=== PATIENT | male | born 1960 | race Two or more races ===

== ENCOUNTER → 2019-06-14 | Outpatient (CLI) | payer OTHER ==
[~2019-06-14] MED LIST: APOTEX PO; APPLE CIDER VINEGAR PO; ATOR20TA37 PO; B CO1TAB14 PO; CEPH-368 PO; CYCL-259 PO; HYDROCHLORIDE PO; IBUP-1223 PO; LACT1CAP37 PO; LISI-170 PO; METO-93 PO; MULT-718 PO; OXYC15TA PO; TESTOSTERONE PO; TRAM50TA2 PO
[2019-06-14 09:55] LABS: BASOPHILS # (AUTO) 0.01 x10^3/uL (0-0.1); BASOPHILS % (AUTO) 0 % (0-1); EOSINOPHILS # (AUTO) 0.08 x10^3/uL (0-0.4); EOSINOPHILS % (AUTO) 2 % (1-7); LYMPHOCYTES # (AUTO) 1.34 x10^3/uL (1-3.4); LYMPHOCYTES % (AUTO) 24 % (22-44); MD NO; MEAN CORPUSCULAR HEMOGLOBIN 30.8 pg (27.5-34.5); MEAN CORPUSCULAR VOLUME 90.4 fL (81-97); MEAN PLATELET VOLUME 7.6 fL (7.4-10.4); MONOCYTES # (AUTO) 0.47 x10^3/uL (0.2-0.8); MONOCYTES % (AUTO) 8 % (2-9); NEUTROPHILS # (AUTO) 3.78 x10^3/uL (1.8-6.8); NEUTROPHILS % (AUTO) 67 % (42-75); PLATELET COUNT 205 x10^3/uL (130-400); RED BLOOD COUNT 4.99 x10^6/uL (4.38-5.82); RED CELL DISTRIBUTION WIDTH 13.4 % (9.4-14.8)
[2019-06-14 10:07] LABS: ALANINE AMINOTRANSFERASE 110 U/L (12-78); ALBUMIN 4.4 g/dL (3.4-5.0); ANION GAP 4 mmol/L (5-15); CALCIUM 8.7 mg/dL (8.5-10.1); CHLORIDE 108 mmol/L (98-107); CREATININE 0.79 mg/dL (0.7-1.3)
[2019-06-14 10:08] LABS: ALKALINE PHOSPHATASE 84 U/L (45-117); BILIRUBIN,TOTAL 0.7 mg/dL (0.2-1.0); TOTAL PROTEIN 7.5 g/dL (6.4-8.2)
[2019-06-14 10:15] LABS: HEMOGLOBIN A1C 6.1 % (4.2-6.3)
[2019-06-14 10:16] LABS: INTERNATIONAL NORMALIZED RATIO 0.98 (0.93-1.1); PROTHROMBIN TIME 10.3 Seconds (9.6-11.5)
[2019-06-14 11:10] LABS: HCT (SEDRATE) 45.1 % (39.2-51.8)
== END | disposition home or self-care (01) ==
LOC: STAR 08:55
PROVIDERS: ATTEND Orthopaedic Surgery Orthopaedic Surgery of the Spine
DX: Z01.818 Encounter for other preprocedural examination (principal); M43.16 Spondylolisthesis, lumbar region; A52.17 General paresis; M48.061 Spinal stenosis, lumbar region without neurogenic claudication; Z87.891 Personal history of nicotine dependence
CPT/HCPCS: 36415; 71046; 80053; 83036; 85025; 85610; 85651; 85730; 93005

== ENCOUNTER 2019-07-05 08:47 | Inpatient (IN) | payer OTHER ==
[~2019-07-05] VITALS: Ht 180.3 cm; Wt 108.5 kg
[2019-07-05] MEDS ORDERED: MIDAZOLAM 1 MG/ML, 2ML ONE (10:21)
[2019-07-05] MEDS ORDERED: FENTANYL PF 250 MCG/5ML ONE ×2 (10:21→12:13)
[2019-07-05] MEDS ORDERED: PROPOFOL 10 MG/ML, 20ML ONE (10:25)
[2019-07-05] MEDS ORDERED: CEFAZOLIN 1,000 MG ONE ×3 (10:25→12:25)
[2019-07-05] MEDS ORDERED: ROCURONIUM 10MG/ML,5ML ONE (10:25)
[2019-07-05] MEDS ORDERED: ONDANSETRON 2MG/ML, 2ML ONE (10:25)
[2019-07-05] MEDS ORDERED: DEXAMETHASONE 4 MG/ML, 1ML ONE (10:25)
[2019-07-05] MEDS ORDERED: NEOSTIGMINE 1 MG/ML, 10ML ONE (10:25)
[2019-07-05] MEDS ORDERED: GLYCOPYRROLATE 0.2MG/1ML, 5ML ONE (10:25)
[2019-07-05] MEDS ORDERED: PROPOFOL 50 ML ONE ×5 (10:25→16:10)
[2019-07-05] MEDS ORDERED: DIPHENHYDRAMINE 50 MG CAPSULE PO PRN (11:00)
[2019-07-05] MEDS ORDERED: PROMETHAZINE 25 MG/ML, 1ML IM PRN (11:00)
[2019-07-05] MEDS ORDERED: LORazepam 1MG TABLET PO PRN (11:00)
[2019-07-05] MEDS: CEFAZOLIN PMX 1GM/50ML 50 ML IVPB SCH ×2 (11:00→19:00)
[2019-07-05] MEDS ORDERED: ACETAMINOPHEN 500 MG TABLET PO PRN (11:00)
[2019-07-05] MEDS ORDERED: OXYcodone IR 5MG TABLET PO PRN (11:00)
[2019-07-05] MEDS ORDERED: DIPHENHYDRAMINE 50 MG/ML, 1ML IM PRN (11:00)
[2019-07-05] MEDS ORDERED: KETOROLAC 30 MG/1 ML IVPush ONE (11:00)
[2019-07-05] MEDS ORDERED: SENNA/DOCUSATE TABLET PO PRN (11:00)
[2019-07-05] MEDS ORDERED: morphine SULFATE 10 MG/ML, 1ML IVPush PRN (11:00)
[2019-07-05] MEDS ORDERED: LABETALOL 5MG/ML, 20ML IVPush PRN (11:00)
[2019-07-05] MEDS ORDERED: DEXAMETHASONE 6 MG in SODIUM CHLORIDE 0.9% 50 ML IV PRN (11:00)
[2019-07-05] MEDS ORDERED: KETOROLAC 30 MG/1 ML IM SCH (11:00)
[2019-07-05] MEDS ORDERED: ONDANSETRON 2MG/ML, 2ML IVPush PRN (11:00)
[2019-07-05] MEDS ORDERED: PHARMACY MAY ADJ FOR RENAL FX MC PRN (11:00)
[2019-07-05] MEDS ORDERED: DIPHENHYDRAMINE 50 MG/ML, 1ML IVPush PRN (11:00)
[2019-07-05] MEDS ORDERED: LACTATED RINGERS 1,000 ML IV SCH (11:02)
[2019-07-05] MEDS ORDERED: TRANEXAMIC ACID 100 MG/ML, 10ML ONE ×2 (11:03)
[2019-07-05] MEDS ORDERED: VANCOMYCIN 1,000 MG ONE (11:03)
[2019-07-05] MEDS ORDERED: BUPIVACAINE/PF 0.5% ONE (11:03)
[2019-07-05] MEDS ORDERED: THROMBIN SPRAY 20,000 UNIT SPRAY TP ONE (11:03)
[2019-07-05] MEDS ORDERED: EPINEPHRINE 1 MG/ML, 1ML ONE (11:03)
[2019-07-05] MEDS ORDERED: LISI-170 PO (11:04)
[2019-07-05] MEDS ORDERED: BACITRACIN 50,000 UNIT ONE (11:04)
[2019-07-05] MEDS ORDERED: GABAPENTIN 300 MG CAPSULE ONE (11:27)
[2019-07-05] MEDS ORDERED: ACETAMINOPHEN 500 MG TABLET ONE (11:27)
[2019-07-05] MEDS ORDERED: VANCOMYCIN PMX 1GM/200ML 200 ML IV ONE (11:30)
[2019-07-05] MEDS ORDERED: ACETAMINOPHEN 500 MG TABLET PO ONE (11:30)
[2019-07-05] MEDS ORDERED: GABAPENTIN 300 MG CAPSULE PO ONE (11:30)
[2019-07-05 11:32] VITALS: BP 131/82
[2019-07-05] MEDS ORDERED: PHENYLEPHRINE 10 MG/ML ONE (11:59)
[2019-07-05] MEDS ORDERED: hydrALAzine 20 MG/ML, 1ML IV PRN (12:00)
[2019-07-05] MEDS ORDERED: LABETALOL 5MG/ML, 20ML IV PRN (12:00)
[2019-07-05] MEDS ORDERED: FENTANYL PF 100 MCG/2ML IV PRN (12:00)
[2019-07-05] MEDS ORDERED: OXYcodone 5 MG/5 ML ORAL.SOL UDC PO PRN (12:00)
[2019-07-05] MEDS ORDERED: ONDANSETRON 2MG/ML, 2ML IV PRN (12:00)
[2019-07-05] MEDS ORDERED: HYDROmorphone 2 MG/ML, 1ML IVPush PRN (12:00)
[2019-07-05] MEDS ORDERED: MORPHINE SULFATE 4 MG/ML, 1ML IVPush PRN (12:00)
[2019-07-05] MEDS ORDERED: MEPERIDINE/PF 25MG/ML,1ML IVPush PRN (12:00)
[2019-07-05] MEDS ORDERED: FENTANYL PF 100 MCG/2ML ONE (17:23)
[2019-07-05] MEDS ORDERED: OXYcodone 5 MG/5 ML ORAL.SOL UDC ONE (17:23)
[2019-07-05] MEDS ORDERED: KETOROLAC 30 MG/1 ML ONE (17:43)
[2019-07-05] MEDS ORDERED: METHOCARBAMOL 1,000 MG in DEXTROSE 5% 100 ML IV ONE (18:00)
[2019-07-05] MEDS ORDERED: KETOROLAC 30 MG/1 ML IVPush PRN (18:00)
[2019-07-05] MEDS ORDERED: DEXAMETHASONE 4 MG/ML, 5ML IVPush PRN (19:00)
[2019-07-05] MEDS: OXYcodone IR 5MG TABLET PO PRN (20:43)
[2019-07-05] MEDS: D5%-0.9% NACL+KCL 20MEQ 1,000 ML IV SCH (23:00)
[2019-07-06 00:56] VITALS: BP 119/81
[2019-07-06] MEDS: CEFAZOLIN PMX 1GM/50ML 50 ML IVPB SCH ×2 (01:43→11:20)
[2019-07-06 05:34] LABS: BASOPHILS % (AUTO) 0 % (0-1); EOSINOPHILS # (AUTO) 0.09 x10^3/uL (0-0.4); EOSINOPHILS % (AUTO) 1 % (1-7); LYMPHOCYTES # (AUTO) 0.92 x10^3/uL (1-3.4); LYMPHOCYTES % (AUTO) 10 % (22-44); MD NO; MEAN CORPUSCULAR HEMOGLOBIN 31.2 pg (27.5-34.5); MEAN CORPUSCULAR HGB CONC 33.7 g/dL (33.2-36.2); MEAN CORPUSCULAR VOLUME 92.5 fL (81-97); MEAN PLATELET VOLUME 8.3 fL (7.4-10.4); MONOCYTES # (AUTO) 0.56 x10^3/uL (0.2-0.8); MONOCYTES % (AUTO) 6 % (2-9); NEUTROPHILS # (AUTO) 7.93 x10^3/uL (1.8-6.8); NEUTROPHILS % (AUTO) 84 % (42-75); PLATELET COUNT 143 x10^3/uL (130-400); RED BLOOD COUNT 3.71 x10^6/uL (4.38-5.82); RED CELL DISTRIBUTION WIDTH 13.1 % (9.4-14.8)
[2019-07-06 06:12] VITALS: BP 109/68
[2019-07-06] MEDS: METOPROLOL SUCCINATE 50 MG TAB.ER.24H PO SCH (06:13)
[2019-07-06 06:56] VITALS: BP 127/76
[2019-07-06] MEDS: MULTIVITS,STRESS FORMULA 1 TABLET PO SCH (07:46)
[2019-07-06] MEDS: CYCLOBENZAPRINE 10 MG TABLET PO SCH (07:46)
[2019-07-06] MEDS: LISINOPRIL 20 MG TABLET PO SCH (07:46)
[2019-07-06] MEDS: LACTOBACILLUS CHEW TABLET PO SCH (07:47)
[2019-07-06] MEDS: D5%-0.9% NACL+KCL 20MEQ 1,000 ML IV SCH ×2 (12:11→22:13)
[2019-07-06] MEDS ORDERED: KETOROLAC 30 MG/1 ML IVPush SCH (13:00)
[2019-07-06 13:35] VITALS: BP 92/59
[2019-07-06] MEDS: DEXAMETHASONE 4 MG/ML, 1ML IV SCH ×2 (14:02→20:21)
[2019-07-06] MEDS: KETOROLAC 30 MG/1 ML IV SCH ×2 (14:02→22:13)
[2019-07-06] MEDS: ACETAMINOPHEN 500 MG TABLET PO SCH ×2 (14:03→20:22)
[2019-07-06 19:14] VITALS: BP 103/68
[2019-07-07 00:24] VITALS: BP 95/57
[2019-07-07] MEDS: DEXAMETHASONE 4 MG/ML, 1ML IV SCH ×4 (02:27→20:14)
[2019-07-07] MEDS: ZOLPIDEM 5MG TABLET PO PRN ×2 (02:27→22:37)
[2019-07-07] MEDS: ACETAMINOPHEN 500 MG TABLET PO SCH ×4 (02:27→20:14)
[2019-07-07 05:33] LABS: MEAN CORPUSCULAR HEMOGLOBIN 31.4 pg (27.5-34.5); MEAN CORPUSCULAR HGB CONC 33.7 g/dL (33.2-36.2); MEAN CORPUSCULAR VOLUME 93.4 fL (81-97); MEAN PLATELET VOLUME 8.5 fL (7.4-10.4); PLATELET COUNT 130 x10^3/uL (130-400); RED BLOOD COUNT 3.09 x10^6/uL (4.38-5.82); RED CELL DISTRIBUTION WIDTH 13.1 % (9.4-14.8)
[2019-07-07 06:12] LABS: BASOPHILS # (AUTO) 0.01 x10^3/uL (0-0.1); BASOPHILS % (AUTO) 0 % (0-1); EOSINOPHILS # (AUTO) 0.21 x10^3/uL (0-0.4); EOSINOPHILS % (AUTO) 2 % (1-7); LYMPHOCYTES # (AUTO) 0.64 x10^3/uL (1-3.4); LYMPHOCYTES % (AUTO) 4 % (22-44); MD SCAN; MONOCYTES # (AUTO) 0.75 x10^3/uL (0.2-0.8); MONOCYTES % (AUTO) 5 % (2-9); NEUTROPHILS % (AUTO) 89 % (42-75)
[2019-07-07] MEDS: METOPROLOL SUCCINATE 50 MG TAB.ER.24H PO SCH (06:12)
[2019-07-07] MEDS: KETOROLAC 30 MG/1 ML IV SCH ×3 (06:12→22:32)
[2019-07-07 06:16] VITALS: BP 108/69
[2019-07-07 07:05] VITALS: BP 110/66
[2019-07-07 08:35] VITALS: BP 126/69
[2019-07-07] MEDS: MULTIVITS,STRESS FORMULA 1 TABLET PO SCH (08:36)
[2019-07-07] MEDS: CYCLOBENZAPRINE 10 MG TABLET PO SCH (08:36)
[2019-07-07] MEDS: LISINOPRIL 20 MG TABLET PO SCH (08:36)
[2019-07-07] MEDS: LACTOBACILLUS CHEW TABLET PO SCH (08:36)
[2019-07-07 14:19] VITALS: BP 121/68
[2019-07-07] MEDS: D5%-0.9% NACL+KCL 20MEQ 1,000 ML IV SCH (14:56)
[2019-07-07] MEDS: METHOCARBAMOL 1,000 MG in DEXTROSE 5% 100 ML IV SCH ×2 (14:56→22:39)
[2019-07-07] MEDS ORDERED: METHOCARBAMOL 750 MG TABLET PO SCH (19:00)
[2019-07-07 19:31] VITALS: BP_SYST 121; BP_SYST 148; BP_DIAS 68; BP_DIAS 77
[2019-07-08 00:55] VITALS: BP 145/78
[2019-07-08] MEDS: D5%-0.9% NACL+KCL 20MEQ 1,000 ML IV SCH ×2 (02:27→13:48)
[2019-07-08] MEDS: ACETAMINOPHEN 500 MG TABLET PO SCH ×4 (02:27→20:04)
[2019-07-08] MEDS: DEXAMETHASONE 4 MG/ML, 1ML IV SCH ×4 (02:27→20:04)
[2019-07-08 05:13] LABS: BASOPHILS # (AUTO) 0.01 x10^3/uL (0-0.1); BASOPHILS % (AUTO) 0 % (0-1); EOSINOPHILS # (AUTO) 0.18 x10^3/uL (0-0.4); EOSINOPHILS % (AUTO) 1 % (1-7); LYMPHOCYTES # (AUTO) 0.57 x10^3/uL (1-3.4); LYMPHOCYTES % (AUTO) 5 % (22-44); MD NO; MEAN CORPUSCULAR HEMOGLOBIN 31.3 pg (27.5-34.5); MEAN CORPUSCULAR HGB CONC 33.5 g/dL (33.2-36.2); MEAN CORPUSCULAR VOLUME 93.7 fL (81-97); MEAN PLATELET VOLUME 8.6 fL (7.4-10.4); MONOCYTES # (AUTO) 0.67 x10^3/uL (0.2-0.8); MONOCYTES % (AUTO) 5 % (2-9); NEUTROPHILS # (AUTO) 11.33 x10^3/uL (1.8-6.8); NEUTROPHILS % (AUTO) 89 % (42-75); PLATELET COUNT 136 x10^3/uL (130-400); RED CELL DISTRIBUTION WIDTH 13.4 % (9.4-14.8)
[2019-07-08] MEDS: METOPROLOL SUCCINATE 50 MG TAB.ER.24H PO SCH (05:50)
[2019-07-08] MEDS: KETOROLAC 30 MG/1 ML IV SCH ×2 (05:50→13:48)
[2019-07-08 06:58] VITALS: BP 117/71
[2019-07-08] MEDS: LISINOPRIL 20 MG TABLET PO SCH (08:19)
[2019-07-08] MEDS: MULTIVITS,STRESS FORMULA 1 TABLET PO SCH (08:19)
[2019-07-08] MEDS: METHOCARBAMOL 1,000 MG in DEXTROSE 5% 100 ML IV SCH (08:19)
[2019-07-08] MEDS: LACTOBACILLUS CHEW TABLET PO SCH (08:19)
[2019-07-08 12:48] VITALS: BP 133/81
[2019-07-08] MEDS: MAGNESIUM HYDROXIDE 8%, 30ML UDC PO PRN (13:55)
[2019-07-08] MEDS ORDERED: IBUPROFEN 800 MG TABLET PO PRN (15:30)
[2019-07-08] MEDS: METHOCARBAMOL 750 MG TABLET PO PRN ×2 (16:30→23:01)
[2019-07-08] MEDS: CEFAZOLIN 2,000 MG in SODIUM CHLORIDE 0.9% 50 ML IV SCH ×2 (16:30→23:42)
[2019-07-08] MEDS: OXYcodone IR 5MG TABLET PO PRN ×3 (16:30→23:40)
[2019-07-08 20:30] VITALS: BP 156/99
[2019-07-08] MEDS: ZOLPIDEM 5MG TABLET PO PRN (23:01)
[2019-07-08 23:47] VITALS: BP 129/84
[2019-07-09] MEDS: ACETAMINOPHEN 500 MG TABLET PO SCH ×4 (02:21→21:13)
[2019-07-09] MEDS: DEXAMETHASONE 4 MG/ML, 1ML IV SCH ×4 (02:21→21:13)
[2019-07-09] MEDS: OXYcodone IR 5MG TABLET PO PRN ×3 (04:38→21:13)
[2019-07-09 05:22] LABS: BASOPHILS # (AUTO) 0.01 x10^3/uL (0-0.1); BASOPHILS % (AUTO) 0 % (0-1); EOSINOPHILS # (AUTO) 0.14 x10^3/uL (0-0.4); EOSINOPHILS % (AUTO) 1 % (1-7); LYMPHOCYTES % (AUTO) 6 % (22-44); MD NO; MEAN CORPUSCULAR HEMOGLOBIN 31.3 pg (27.5-34.5); MEAN CORPUSCULAR HGB CONC 33.6 g/dL (33.2-36.2); MEAN PLATELET VOLUME 8.3 fL (7.4-10.4); MONOCYTES # (AUTO) 0.39 x10^3/uL (0.2-0.8); MONOCYTES % (AUTO) 4 % (2-9); NEUTROPHILS # (AUTO) 10.06 x10^3/uL (1.8-6.8); NEUTROPHILS % (AUTO) 89 % (42-75); PLATELET COUNT 180 x10^3/uL (130-400); RED BLOOD COUNT 3.05 x10^6/uL (4.38-5.82); RED CELL DISTRIBUTION WIDTH 13.5 % (9.4-14.8)
[2019-07-09] MEDS: METOPROLOL SUCCINATE 50 MG TAB.ER.24H PO SCH (06:27)
[2019-07-09 07:28] VITALS: BP 152/91
[2019-07-09] MEDS: LISINOPRIL 20 MG TABLET PO SCH (08:49)
[2019-07-09] MEDS: MULTIVITS,STRESS FORMULA 1 TABLET PO SCH (08:49)
[2019-07-09] MEDS: LACTOBACILLUS CHEW TABLET PO SCH (08:49)
[2019-07-09] MEDS: CEFAZOLIN 2,000 MG in SODIUM CHLORIDE 0.9% 50 ML IV SCH ×2 (08:59→16:52)
[2019-07-09] MEDS: MAGNESIUM HYDROXIDE 8%, 30ML UDC PO PRN (11:12)
[2019-07-09 14:00] VITALS: BP 156/83
[2019-07-09 20:41] VITALS: BP 159/96
[2019-07-09] MEDS: ZOLPIDEM 5MG TABLET PO PRN (22:33)
[2019-07-10] MEDS: CEFAZOLIN 2,000 MG in SODIUM CHLORIDE 0.9% 50 ML IV SCH ×2 (00:24→08:30)
[2019-07-10] MEDS: DEXAMETHASONE 4 MG/ML, 1ML IV SCH ×2 (03:25→08:30)
[2019-07-10] MEDS: ACETAMINOPHEN 500 MG TABLET PO SCH ×2 (03:26→08:31)
[2019-07-10] MEDS: OXYcodone IR 5MG TABLET PO PRN ×2 (03:26→06:26)
[2019-07-10 04:07] VITALS: BP 151/80
[2019-07-10 05:25] LABS: BASOPHILS # (AUTO) 0.01 x10^3/uL (0-0.1); BASOPHILS % (AUTO) 0 % (0-1); EOSINOPHILS % (AUTO) 1 % (1-7); LYMPHOCYTES # (AUTO) 0.92 x10^3/uL (1-3.4); LYMPHOCYTES % (AUTO) 10 % (22-44); MD NO; MEAN CORPUSCULAR HEMOGLOBIN 31.2 pg (27.5-34.5); MEAN CORPUSCULAR HGB CONC 33.6 g/dL (33.2-36.2); MEAN CORPUSCULAR VOLUME 92.9 fL (81-97); MEAN PLATELET VOLUME 8.2 fL (7.4-10.4); MONOCYTES % (AUTO) 6 % (2-9); NEUTROPHILS # (AUTO) 7.48 x10^3/uL (1.8-6.8); NEUTROPHILS % (AUTO) 83 % (42-75); PLATELET COUNT 197 x10^3/uL (130-400); RED BLOOD COUNT 3.16 x10^6/uL (4.38-5.82); RED CELL DISTRIBUTION WIDTH 13.4 % (9.4-14.8)
[2019-07-10] MEDS: METOPROLOL SUCCINATE 50 MG TAB.ER.24H PO SCH (06:26)
[2019-07-10 07:53] VITALS: BP 153/81
[2019-07-10] MEDS: LACTOBACILLUS CHEW TABLET PO SCH (08:30)
[2019-07-10] MEDS: MULTIVITS,STRESS FORMULA 1 TABLET PO SCH (08:31)
[2019-07-10] MEDS: LISINOPRIL 20 MG TABLET PO SCH (08:31)
[2019-07-10] MEDS: MAGNESIUM HYDROXIDE 8%, 30ML UDC PO PRN (08:38)
[2019-07-10] MEDS ORDERED: HYDR-3237 PO (13:38)
[2019-07-10] MEDS ORDERED: OXYC5CAP2 PO (13:56)
[2019-07-10] MEDS ORDERED: CEPH-368 PO (13:57)
[2019-07-10] MEDS ORDERED: DIAZ5TAB PO (13:57)
== END 2019-07-10 14:35 | disposition home or self-care (01) | DRG 460 ==
LOC: ORIP 10:13 → 4NE 18:40
PROVIDERS: ADMIT Orthopaedic Surgery Orthopaedic Surgery of the Spine; ATTEND Orthopaedic Surgery Orthopaedic Surgery of the Spine
PROC: 0SG30AJ Fusion of Lumbosacral Joint with Interbody Fusion Device, Posterior Approach, Anterior Column, Open Approach (ICD-10-PCS; 2019-07-05)
PROC: 00NY0ZZ Release Lumbar Spinal Cord, Open Approach (ICD-10-PCS; 2019-07-05)
PROC: 4A11X4G Monitoring of Peripheral Nervous Electrical Activity, Intraoperative, External Approach (ICD-10-PCS; 2019-07-05)
PROC: 0SG00AJ Fusion of Lumbar Vertebral Joint with Interbody Fusion Device, Posterior Approach, Anterior Column, Open Approach (ICD-10-PCS; principal; 2019-07-05 12:00)
CPT/HCPCS: 36415 ×2; 72100 ×2; 85025; 86850; 86900; 95938; 95941; C1713; G0378; J0171; J0690; J1100; J1885; J2250; J2270; J2405; J2704; J2710; J3010; J3370; S0020; C1760; C1762; C1763; C9362; J2370; J2800; J3480; J7120

== ENCOUNTER 2020-07-03 08:33 | Day surgery (SDC) | payer OTHER ==
[~2020-07-03] VITALS: Ht 180.3 cm; Wt 103.2 kg
[~2020-07-03 08:33] MED LIST changes: +BACITRACIN 50,000 UNIT ONE; +BUPIVACAINE/PF 0.5% ONE; +DIAZ5TAB PO; +EPINEPHRINE 1 MG/ML, 1ML ONE; +HYDR-3237 PO; -OXYC15TA PO; +OXYC15TA3 PO; +OXYC5CAP2 PO; +THROMBIN 20,000 UNIT VIAL TP ONE; +TRANEXAMIC ACID 100 MG/ML, 10ML ONE; +VANCOMYCIN 1,000 MG ONE
[2020-07-03] MEDS ORDERED: MIDAZOLAM 1 MG/ML, 5ML ONE (08:47)
[2020-07-03] MEDS ORDERED: FENTANYL PF 250 MCG/5ML ONE (08:47)
[2020-07-03] MEDS ORDERED: ROCURONIUM 10MG/ML,5ML ONE (08:47)
[2020-07-03] MEDS ORDERED: DEXAMETHASONE 4 MG/ML, 5ML ONE (08:47)
[2020-07-03] MEDS ORDERED: GLYCOPYRROLATE 0.2MG/1ML, 5ML ONE (08:47)
[2020-07-03] MEDS ORDERED: LIDOCAINE-MPF 2% ,5ML ONE (08:47)
[2020-07-03] MEDS ORDERED: PROPOFOL 10 MG/ML, 20ML ONE (08:47)
[2020-07-03 09:20] VITALS: BP 130/82
[2020-07-03] MEDS ORDERED: DIAZ5TAB4 PO ×2 (09:28→14:41)
[2020-07-03] MEDS ORDERED: LACTATED RINGERS 1,000 ML IV SCH (09:30)
[2020-07-03] MEDS ORDERED: CHLORHEXIDINE 15 ML UDC MM ONE (09:30)
[2020-07-03] MEDS ORDERED: ATOR40TA78 PO (09:55)
[2020-07-03] MEDS ORDERED: ONDANSETRON 2MG/ML, 2ML IVPush PRN ×2 (10:00→11:00)
[2020-07-03] MEDS ORDERED: OXYcodone 5 MG/5 ML ORAL.SOL UDC PO PRN ×2 (10:00→11:00)
[2020-07-03] MEDS ORDERED: HALOPERIDOL 5 MG/ML IV PRN (10:00)
[2020-07-03] MEDS ORDERED: LORazepam 2 MG/ML, 1ML IVPush PRN (10:00)
[2020-07-03] MEDS ORDERED: HYDROmorphone 1 MG/ML, 1ML INJ IVPush PRN (10:00)
[2020-07-03] MEDS ORDERED: DIAZEPAM 5 MG/ML, 2ML IVPush PRN (10:00)
[2020-07-03] MEDS ORDERED: DIPHENHYDRAMINE 50 MG/ML, 1ML IVPush PRN (10:00)
[2020-07-03] MEDS ORDERED: VANCOMYCIN PMX 1GM/200ML 200 ML IV ONE (10:00)
[2020-07-03] MEDS ORDERED: METOCLOPRAMIDE 5 MG/ML, 2ML IVPush PRN (10:00)
[2020-07-03] MEDS ORDERED: MIDAZOLAM 1 MG/ML, 2ML IV PRN (10:00)
[2020-07-03] MEDS ORDERED: hydrALAzine 20 MG/ML, 1ML IV PRN (10:00)
[2020-07-03] MEDS ORDERED: ACETAMINOPHEN 325 MG TABLET PO PRN (10:00)
[2020-07-03] MEDS ORDERED: HYDROcodone/APAP 7.5-325MG/15ML UDC PO PRN (10:00)
[2020-07-03] MEDS ORDERED: LABETALOL 5MG/ML, 20ML IV PRN (10:00)
[2020-07-03] MEDS ORDERED: METHOCARBAMOL 1,000 MG in DEXTROSE 5% 100 ML IV PRN (10:00)
[2020-07-03] MEDS ORDERED: ALBUTEROL/IPRATROPIUM 2.5MG/0.5MG, 3 ML NPPB PRN (10:00)
[2020-07-03] MEDS ORDERED: EPHEDRINE 50 MG/ML, 1ML IVPush PRN (10:00)
[2020-07-03] MEDS ORDERED: EPHEDRINE 50 MG/ML, 1ML IM PRN (10:00)
[2020-07-03 10:13] LABS: BASOPHILS % (AUTO) 1 % (0-1); EOSINOPHILS % (AUTO) 1 % (1-7); LYMPHOCYTES % (AUTO) 27 % (22-44); MEAN CORPUSCULAR HEMOGLOBIN 29.9 pg (27.5-34.5); MEAN CORPUSCULAR HGB CONC 34.4 g/dL (33.2-36.2); MEAN PLATELET VOLUME 8.2 fL (7.4-10.4); MONOCYTES % (AUTO) 9 % (2-9); NEUTROPHILS % (AUTO) 62 % (42-75); PLATELET COUNT 189 x10^3/uL (130-400)
[2020-07-03 10:18] LABS: ANION GAP 6 mmol/L (5-15); CALCIUM 9.1 mg/dL (8.5-10.1); CHLORIDE 111 mmol/L (98-107); CREATININE 0.76 mg/dL (0.7-1.3)
[2020-07-03 10:19] LABS: INTERNATIONAL NORMALIZED RATIO 1.03 (0.93-1.1); PROTHROMBIN TIME 10.9 Seconds (9.6-11.5)
[2020-07-03 10:21] LABS: MD NO
[2020-07-03 10:26] LABS: HCT (SEDRATE) 43.5 % (39.2-51.8)
[2020-07-03] MEDS ORDERED: HYDROmorphone 1 MG/ML, 1ML INJ IM PRN (11:00)
[2020-07-03] MEDS ORDERED: morphine SULFATE 10 MG/ML, 1ML IVPush PRN (11:00)
[2020-07-03] MEDS ORDERED: PROMETHAZINE 25 MG/ML, 1ML IM PRN (11:00)
[2020-07-03] MEDS ORDERED: CEFAZOLIN 1,000 MG ONE (11:05)
[2020-07-03] MEDS ORDERED: FENTANYL PF 100 MCG/2ML ONE (13:33)
[2020-07-03] MEDS ORDERED: HYDROcodone/APAP 7.5-325MG/15ML UDC ONE (13:33)
[2020-07-03] MEDS ORDERED: ONDANSETRON 2MG/ML, 2ML ONE (13:33)
[2020-07-03] MEDS: FENTANYL PF 100 MCG/2ML IV PRN ×3 (13:37→14:05)
[2020-07-03] MEDS ORDERED: OXYC5CAP2 PO (14:40)
[2020-07-03] MEDS ORDERED: CEPH-368 PO (14:42)
== END 2020-07-03 16:30 | disposition home or self-care (01) ==
LOC: OUT 08:33
PROVIDERS: ATTEND Orthopaedic Surgery Orthopaedic Surgery of the Spine
DX: T84.84XA Pain due to internal orthopedic prosthetic devices, implants and grafts, initial encounter (principal); I10 Essential (primary) hypertension; M21.371 Foot drop, right foot; Z20.828 Contact with and (suspected) exposure to other viral communicable diseases; Z79.01 Long term (current) use of anticoagulants; Z79.891 Long term (current) use of opiate analgesic; Z79.899 Other long term (current) drug therapy; Z98.1 Arthrodesis status; Y83.8 Other surgical procedures as the cause of abnormal reaction of the patient, or of later complication, without mention of misadventure at the time of the procedure
CPT/HCPCS: 22830; 22852; 36415; 72100; 80048; 83036; 85025; 85610; 85651; 85730; 93005; C1760; C1762; C9362; J0171; J0690; J1100; J2250; J2405; J2704; J2800; J3010; J3370; J7120; U0003